=== PATIENT | male | born 1940 | race Caucasian/White ===

== ENCOUNTER 2019-09-16 04:09 | Inpatient (IN) ==
[2019-09-16] MEDS ORDERED: NS 1,000 ML IV ONE ×2 (05:02→08:11)
[2019-09-16 05:04] LABS: BASO# 0.02 X1000 (0.0-0.2); BASO% 0.1 % (0.0-0.8); HEMATOCRIT 39.7 % (42.0-52.0); HEMOGLOBIN 12.9 g/dL (14.0-18.0); IMM GRAN# 0.07 X1000 (0.0-0.04); IMM GRAN% 0.3 % (0.0-0.5); LYMPH# 1.63 X1000 (1.2-3.4); LYMPH% 7.9 % (20.5-51.1); MCH 33.2 PG (27-31); MCHC 32.5 g/dL (33-37); MCV 102.1 FL (81-99); MONO# 1.25 X1000 (0.11-0.59); MONO% 6.1 % (1.7-9.3); MPV 8.7 FL (7.4-10.4); NEUT# 17.61 X1000 (1.4-6.5); NEUT% 85.6 % (42.2-75.2); PLT 235 X1000 (130-400); RBC 3.89 XMIL (4.7-6.1); RDW 12.8 % (11.5-14.5); WBC 20.58 X1000 (4.8-10.8)
[2019-09-16 05:13] LABS: INR 1.14; PROTIME 14.7 Seconds (11.0-16.0)
[2019-09-16 05:14] LABS: PTT 30.2 Seconds (22.3-41.8)
[2019-09-16 05:25] LABS: ALB/GLOB RATIO 1.1; ALBUMIN 3.1 g/dL (3.5-5.0); CALCIUM 8.4 mg/dL (8.8-10.2); CREATININE 1.4 mg/dL (0.7-1.2); POTASSIUM 3.9 mmol/L (3.5-5.1); TOTAL BILIRUBIN 0.71 mg/dL (0.20-1.00); TOTAL PROTEIN 5.8 g/dL (6.3-8.3)
[2019-09-16 06:03] LABS: CK-MB 2.17 ng/mL (0.0-5.0)
[2019-09-16 06:20] LABS: URINE SOURCE CATH
[2019-09-16 06:30] LABS: BILIRUBIN URINE NEGATIVE (NEGATIVE); BLOOD URINE MODERATE (NEGATIVE); COLOR YELLOW; GLUCOSE URINE NEGATIVE (NEGATIVE); KETONE URINE NEGATIVE (NEGATIVE); LEUKOCYTES URINE LARGE (NEGATIVE); NITRITE URINE NEGATIVE (NEGATIVE); PROTEIN URINE 70 mg/dL (NEGATIVE); SP GRAVITY URINE 1.014; TURBIDITY URINE HAZY (CLEAR); UROBILINOGEN URINE NORMAL (NORMAL)
--- NOTE | 2019-09-16 06:33 | Diag Imaging Result Doc PS360 ---
CHEST-1 VIEW - 09/16/2019 INDICATION: NEWS COMPARISON: 04/07/2019 FINDINGS: Stable calcified granuloma in the left lung base. The lungs are clear. Heart size is normal. No pneumothorax or pleural effusion. IMPRESSION: Negative exam. Electronically signed by Mike Kaufman 09/16/2019 6:30 AM
[2019-09-16 06:37] LABS: UR EPITHELIAL CELLS <10 /HPF (<10); URINE BACTERIA 4+ /HPF; URINE RBC 20-40 /HPF (<10); URINE WBC TNTC /HPF (<10)
--- NOTE | 2019-09-16 06:44 | EKG Report ---
Test Performed on : 09/16/2019 05:09:38 AM Test Reason : WEAKNESS Blood Pressure : / mmHG Vent. Rate : 091 BPM Atrial Rate : 091 BPM P-R Int : 158 ms QRS Dur : 096 ms QT Int : 324 ms P-R-T Axes : 063 -12 050 degrees QTc Int : 398 ms Sinus rhythm. with premature atrial complexes. Otherwise normal ECG When compared with ECG of 16-SEP-2019 05:09, (Unconfirmed) premature ventricular complexes. are no longer present premature atrial complexes. are now present Unconfirmed Result
[2019-09-16] MEDS ORDERED: LEVAQUIN 500 MG/D5W 500 MG/100 ML IVPB IV ONE (06:45)
[2019-09-16 06:47] LABS: URINE CASTS NONE SEEN; URINE CRYSTALS NONE SEEN; URINE SMALL ROUND CELLS NONE SEEN; URINE YEAST NONE SEEN
--- NOTE | 2019-09-16 06:51 | PROVIDER DOCUMENTATION ---
HPI-Fever - General Chief Complaint: Weakness Stated Complaint: weakness Time Seen by Provider: 09/16/19 04:09 Source: patient Allergies/Adverse Reactions: Patient Allergies Allergy/AdvReac Type Severity Reaction Status Date / Time No Known Allergies Allergy Verified 09/16/19 07:06 Home Medications: Home Medication List Medication Instructions Recorded Confirmed Last Taken Type Prednisone 20 mg PO DAILY 10/28/12 09/16/19 10/28/12 18:00 History SIMVAstatin [Zocor] 20 mg PO QHS 10/28/12 09/16/19 10/28/12 18:00 History Tamsulosin [Flomax] 0.8 mg PO DAILY 10/28/12 09/16/19 10/28/12 18:00 History Mesalamine 2 tab PO DAILY 09/16/19 09/16/19 Unknown History - History of Present Illness-Fever Nature of Presenting Problem: 78 y/o WM c/o generalized weakness and difficulty urinating since last night. Pt notes that he fell trying to get to restroom last night bumping his lt elbow. Pt adds that he thinks his tetanus is utd. Fever Severity/Quality: reports: low grade Onset/Duration: reports: last night Timing: reports: still present Severity: reports: moderate Context: reports: none Fever Therapy SENIOR SOFTWARE QA ANALYST: Initiated Tylenol Cognitive Baseline: alert, oriented x3 Modifying Factors: improves with: movement Associated Symptoms: reports: genitourinary problems, trouble walking Similar Symptoms Previously?: No Recently seen or treated by another doctor?: No - Glascow Coma Score Best Eye Response ([place]): (4) open spontaneously Best Verbal Response ([place]): (5) oriented Best Motor Response ([place]): (6) obeys commands Review of Systems - Adult - REVIEW OF SYSTEMS - ADULT Constitutional: reports: see HPI, fever Eyes: reports: no symptoms reported, see HPI Ears, Nose, Mouth & Throat: reports: no symptoms reported, see HPI Cardiovascular: reports: no symptoms reported, see HPI Respiratory: reports: no symptoms reported, see HPI Gastrointestinal: reports: no symptoms reported, see HPI Genitourinary: reports: see HPI, hesitency Musculoskeletal: reports: no symptoms reported, see HPI Integumentary: reports: see HPI, other (skin abrasion to elbows) Neurological: reports: see HPI, loss of balance Psychiatric: reports: no symptoms reported, see HPI Endocrine: reports: no symptoms reported, see HPI Hematologic/Lymphatic: reports: no symptoms reported, see HPI Allergic/Immunologic: reports: no symptoms reported, see HPI All Other Systems: Reviewed and Negative Past History - Adult - PAST MEDICAL HISTORY-ADULT Review of Records: reports: Nursing Assessment Review, Medications Reviewed, Social history reviewed & non-contributory. Physical Exam-General - PHYSICAL EXAM-ADULT Initial Vital Signs Reviewed: Yes - CONSTITUTIONAL General Appearance: appears well, alert, no apparent distress - EYES Eyes: PERRL/EOMI - HEAD, EARS, NOSE, MOUTH & THROAT HENMT: normocephalic/atraumatic, moist mucous membranes, other (dry MM) - NECK Neck: non-tender, full range of motion, supple - RESPIRATORY Respiratory: chest non-tender, lungs clear, normal breath sounds, no pleuratic chest pain, no respiratory distress, no accessory muscle use - CARDIOVASCULAR Cardiovascular: normal peripheral pulses, regular rate, rhythm, no edema, no gallop, no JVD, no murmur - GASTROINTESTINAL (ABDOMEN) Abdominal Exam: normal bowel sounds, non tender, soft, no organomegaly, no pulsatile mass - LYMPHATIC Lymphatic: no adenopathy - MUSCULOSKELETAL Back Exam: normal inspection, no CVA tenderness, no vertebral tenderness Extremity: non-tender Peripheral Pulses: radial (R): 4+, radial (L): 4+, dorsalis-pedis (R): 4+, dorsalis-pedis (L): 4+ - SKIN Integumentary: normal color, normal turgor - NEUROLOGIC Neurologic: maritime guard II-XII nml as tested, grossly normal, no motor/sensory deficits. negative: sensory deficit - PSYCHIATRIC Psych/Mental Status: normal mood/affect, normal thought content, normal thought process, oriented x 3 Progress - PLAN OF CARE/RESULTS Progress/Plan/Lab Results: Vital Signs - 8 hr 09/16/19 04:30 09/16/19 05:00 09/16/19 06:00 Temperature 100.8 F H Pulse Rate 96 H 99 H 99 H Respiratory Rate 20 20 20 Blood Pressure 105/53 90/59 111/69 O2 Sat by Pulse Oximetry 95 94 L 96 Laboratory Results - last 24 hr 09/16/19 09/16/19 09/16/19 04:41 04:50 04:50 WBC RBC Hgb Hct MCV MCH MCHC RDW Std Deviation Plt Count MPV Immature Gran % (Auto) Neut % (Auto) Lymph % (Auto) [place] % (Auto) Eos % (Auto) Baso % (Auto) Immature Gran # (Auto) Neut # (Auto) Lymph # (Auto) [place] # (Auto) Eos # (Auto) Baso # (Auto) PT INR PTT (Actin FS) Sodium 138 Potassium 3.9 Chloride 99 Carbon Dioxide 27 Anion Gap 12 BUN 27 H Creatinine 1.4 H Estimated GFR/1.73 m2 49 BUN/Creatinine Ratio 19 Glucose 117 H POC Glucose 102 Calculated Osmolality 282 Calcium 8.4 L Total Bilirubin 0.71 AST 16 ALT 13 Alkaline Phosphatase 49 Creatine Kinase 221 H Creatine Kinase Index 1.0 CK-MB (CK-2) 2.17 Troponin T High Sens Total Protein 5.8 L Albumin 3.1 L Globulin 2.7 Albumin/Globulin Ratio 1.1 Plasma Lactate 1.2 Urine Source Urine Color Urine Turbidity Urine pH Ur Specific [place] Urine Protein Ur Glucose (Stick) Ur Ketones (Stick) Urine Blood Urine Nitrite Urine Bilirubin Urobilinogen Dipstick Urine Leukocytes Urine WBC (Auto) Urine RBC (Auto) U Epithel Cells (Auto) Urine Bacteria (Auto) Urine Crystals Small Round Cells Urine Casts Urine Yeast-like Cells 09/16/19 09/16/19 09/16/19 04:50 04:50 04:50 WBC 20.58 H RBC 3.89 L Hgb 12.9 L Hct 39.7 L MCV 102.1 H MCH 33.2 H MCHC 32.5 L RDW Std Deviation 12.8 Plt Count 235 MPV 8.7 Immature Gran % (Auto) 0.3 Neut % (Auto) 85.6 H Lymph % (Auto) 7.9 L [place] % (Auto) 6.1 Eos % (Auto) 0.0 Baso % (Auto) 0.1 Immature Gran # (Auto) 0.07 H Neut # (Auto) 17.61 H Lymph # (Auto) 1.63 [place] # (Auto) 1.25 H Eos # (Auto) 0.00 Baso # (Auto) 0.02 PT 14.7 INR 1.14 PTT (Actin FS) 30.2 Sodium Potassium Chloride Carbon Dioxide Anion Gap BUN Creatinine Estimated GFR/1.73 m2 BUN/Creatinine Ratio Glucose POC Glucose Calculated Osmolality Calcium Total Bilirubin AST ALT Alkaline Phosphatase Creatine Kinase Creatine Kinase Index CK-MB (CK-2) Troponin T High Sens 26 H Total Protein Albumin Globulin Albumin/Globulin Ratio Plasma Lactate Urine Source Urine Color Urine Turbidity Urine pH Ur Specific [place] Urine Protein Ur Glucose (Stick) Ur Ketones (Stick) Urine Blood Urine Nitrite Urine Bilirubin Urobilinogen Dipstick Urine Leukocytes Urine WBC (Auto) Urine RBC (Auto) U Epithel Cells (Auto) Urine Bacteria (Auto) Urine Crystals Small Round Cells Urine Casts Urine Yeast-like Cells 09/16/19 06:12 WBC RBC Hgb Hct MCV MCH MCHC RDW Std Deviation Plt Count MPV Immature Gran % (Auto) Neut % (Auto) Lymph % (Auto) [place] % (Auto) Eos % (Auto) Baso % (Auto) Immature Gran # (Auto) Neut # (Auto) Lymph # (Auto) [place] # (Auto) Eos # (Auto) Baso # (Auto) PT INR PTT (Actin FS) Sodium Potassium Chloride Carbon Dioxide Anion Gap BUN Creatinine Estimated GFR/1.73 m2 BUN/Creatinine Ratio Glucose POC Glucose Calculated Osmolality Calcium Total Bilirubin AST ALT Alkaline Phosphatase Creatine Kinase Creatine Kinase Index CK-MB (CK-2) Troponin T High Sens Total Protein Albumin Globulin Albumin/Globulin Ratio Plasma Lactate Urine Source CATH Urine Color YELLOW Urine Turbidity HAZY Urine pH 6.0 Ur Specific [place] 1.014 Urine Protein 70 A Ur Glucose (Stick) NEGATIVE Ur Ketones (Stick) NEGATIVE Urine Blood MODERATE A Urine Nitrite NEGATIVE Urine Bilirubin NEGATIVE Urobilinogen Dipstick NORMAL Urine Leukocytes LARGE A Urine WBC (Auto) TNTC A Urine RBC (Auto) 20-40 A U Epithel Cells (Auto) <10 Urine Bacteria (Auto) 4+ Urine Crystals NONE SEEN Small Round Cells NONE SEEN Urine Casts NONE SEEN Urine Yeast-like Cells NONE SEEN Orders Category Date Time Status Cardiac Monitoring NOW Care 09/16/19 04:40 Active NEWS Score 2-4:Order NEWS Lactate Series NOW Care 09/16/19 04:38 Completed Notify Provider of NEWS Score NOW Care 09/16/19 04:40 Active CHEST-1 VIEW [RAD] Stat Exams 09/16/19 04:40 Completed BLOOD CULTURE [BLDCUL] Stat Lab 09/16/19 04:50 Results CBC WITH DIFF [HEME] Stat Lab 09/16/19 04:50 Completed CK PROFILE [SP CHEM] Stat Lab 09/16/19 04:50 Completed COMPREHENSIVE METABOLIC PANEL [CHEM] Stat Lab 09/16/19 04:50 Completed LACTATE, PLASMA [CHEM] Lab 09/16/19 07:45 Uncollected LACTATE, PLASMA [CHEM] Lab 09/16/19 10:45 Uncollected LACTATE, PLASMA [CHEM] Q3H Lab 09/16/19 04:50 Completed PROTIME WITH INR [COAG] Stat Lab 09/16/19 04:50 Completed PTT [COAG] Stat Lab 09/16/19 04:50 Completed TROPONIN T HIGH SENSITIVITY Stat Lab 09/16/19 04:50 Completed URINALYSIS W/POSS RFLX CULT [URINALYSIS] Stat Lab 09/16/19 06:12 Completed URINE CULTURE [RM] Routine Lab 09/16/19 06:12 Received URINE MANUAL MICROSCOPIC [URINALYSIS] Stat Lab 09/16/19 06:12 Completed 0.9% Sodium Chloride Inj [Ns] 1,000 ml Med 09/16/19 05:02 Discontinued IV 999 mls/hr Acetaminophen [Tylenol] Med 09/16/19 06:54 Discontinued 650 mg PO NOW ONE Levofloxacin 500 mg/D5w [Levaquin 500 mg/D5w] Med 09/16/19 06:45 Discontinued 500 mg in 100 ml IV NOW O2 Per Protocol Stat Oth 09/16/19 04:40 Active EKG [EKG] Stat Ther 09/16/19 05:09 Draft Result Diagrams: 09/16/19 04:50 09/16/19 04:50 - CONSULTS/PCP/HOSPITALIST Notification #1 *Consult/PCP/Hospitalist*: Dr Quinn Time Discussed: 06:54 Reason/Comments: paged #2 Consult: Karlene jensen Hospitalist Time Discussed: 07:46 Consult Disposition: Will see in ED, Admit Departure - Departure Date of Disposition Decision: 09/16/19 Time of Disposition Decision: 06:54 DIAGNOSIS: UTI (urinary tract infection), Weakness Disposition: ADMITTED INPATIENT 09 Certified Medical Emergency: Emergent Condition: Fair Referrals and Follow-Ups: None,PCP [Primary Care Provider] - - Critical Care Note This patient required my direct & personal management of CC.: No Attestation - Physician/ YOUSIF Attestation Patient care was provided by Advanced Practice Provider:: No The physician spent face to face time with patient:: Yes Advanced Practice Provider documentation review:: Supervising physician onsite and consulted in the evaluation and care of this patient. The physician did have a face to face encounter with the patient.
[2019-09-16] MEDS ORDERED: TYLENOL PO ONE (06:54)
[2019-09-16] MEDS ORDERED: NS 1,000 ML ONE (08:11)
--- NOTE | 2019-09-16 09:01 | HISTORY AND PHYSICAL ---
PRIMARY CARE PHYSICIAN: Dr. Salazar. CHIEF COMPLAINT: A fall, generalized weakness, difficulty urinating that began last night. HISTORY OF PRESENTING ILLNESS: This is a 78-year-old male, who presents to [facility] with family, who stated that he had fallen trying to go to the restroom and bumped his left elbow. Did not hit his head or lose any consciousness. He has had increased weakness and difficulty urinating that began last night and has progressively worsened. Workup showed a white blood cell count of 20.58, creatinine of 1.4. Urinalysis showed negative nitrites, large leukocytes, 4+ bacteria. When he arrived to the emergency room, his blood pressure was 105/53; currently it is 70/59. We are giving him fluids per the sepsis protocol. He has had his blood cultures. Received her first dose of Levaquin 500 mg IV, and further orders will be admitted for further evaluation and treatment. PAST MEDICAL HISTORY: Hyperlipidemia, BPH. PAST SURGICAL HISTORY: A total knee replacement. FAMILY HISTORY: Reviewed and noncontributory. SOCIAL HISTORY: Currently lives with . He is a former smoker. Drinks alcohol socially and denies any illicit drug use. ALLERGIES: He has no known drug allergies. HOME MEDICATIONS: He takes mesalamine 1.2 two tablets p.o. daily, prednisone 20 mg p.o. daily, simvastatin 20 mg p.o. at bedtime and Flomax 0.8 mg p.o. daily. LABORATORY DATA: Showed a white blood cell count of 20.58, hemoglobin 12.9, hematocrit 39.7, platelets 235. PT and INR of 14.7 and 1.14. Sodium 138, potassium 3.9, chloride 99, CO2 27. BUN of 27, creatinine 1.4, glucose 117, plasma lactate was 1.2. Urinalysis showed moderate blood, negative nitrites, large leukocytes and 4+ bacteria. This was per in-and-out catheterization. IMAGING STUDIES: 1. Chest x-ray showed a negative exam. 2. EKG showed normal sinus rhythm with premature atrial complexes at 91. REVIEW OF SYSTEMS: He denied any fever, chills, blurred vision. He did have some dizziness generalized weakness, had a fall. Denied any chest pain, coughing, shortness of breath. Denied any abdominal pain, constipation, diarrhea. He did have difficulty with urination. PHYSICAL EXAMINATION: VITAL SIGNS: On arrival, he had a temperature of a 100.8 degrees, pulse 96, respirations 20, blood pressure 105/53, satting 95% on room air. Currently, his blood pressure is 70/59. HENT: Normocephalic, atraumatic. Normal ENT inspection. Oropharynx and nares are clear. EYES: Pupils are equal, round, reactive to light and accommodation. Extraocular movements are intact. NECK: Normal inspection. Normal range of motion. LUNGS: Clear to auscultation bilaterally with equal lung expansion and chest wall movement. HEART: With regular rate and rhythm. No murmurs, rubs, or gallops. ABDOMEN: Soft, nontender, nondistended. Bowel sounds are present x4 quadrants. MUSCULOSKELETAL: He had 4/5 strength x4 extremities. NEUROLOGICAL: The cranial nerves 2-12 appear grossly intact. ASSESSMENT: 1. Sepsis. 2. Urinary tract infection. 3. Hypotension. 4. Leukocytosis. 5. Acute kidney injury. 6. Fall. PLAN: He will be admitted to the medical unit if we are able to get his blood pressure up after this current liter bolus. If not, he will need to go to [facility], so we will await the completion of this liter bolus to make that decision. He will be placed on telemetry, healthy heart diet. We will apply SCDs for DVT prophylaxis. He will have normal saline at 125 mL an hour, Levaquin 500 mg IV q. 24 hours, and receive that first dose in the emergency room. We will do serial lactates. Recheck CBC and BMP in the a.m. Urine culture is also pending and blood culture x2 pending. Dictated by BECCA Florian for Jose Garces MD Addendum: Patient seen and examined by myself. Agree with BECCA note. It reflects my assessment and plan. Patient is being admitted to hospital for sepsis secondary to UTI. Will monitor patient closely. Will start Meropenem and will follow results of urine and blood cultures. cc: BECCA Florian MD Kathy J. Sparacino, MD [facility]IT[facility]
[2019-09-16] MEDS ORDERED: NS 1,000 ML IV SCH ×2 (09:36→10:00)
[2019-09-16] MEDS ORDERED: PREDNISONE PO SCH (09:36)
[2019-09-16] MEDS ORDERED: ZOFRAN IV PRN (09:36)
[2019-09-16] MEDS ORDERED: ROCEPHIN 1 GM in NS 50 ML IV SCH (10:00)
[2019-09-16] MEDS: NS 1,000 ML IV SCH ×3 (10:37→23:30)
[2019-09-16] MEDS: LIALDA PO SCH (10:37)
[2019-09-16] MEDS: FLOMAX PO SCH (10:37)
[2019-09-16] MEDS: ZOCOR PO SCH (21:30)
[2019-09-16] MEDS: MERREM 1 GM in NS 50 ML IV SCH (21:34)
[2019-09-17] MEDS: MERREM 1 GM in NS 50 ML IV SCH ×3 (03:50→20:01)
[2019-09-17] MEDS: NS 1,000 ML IV SCH ×3 (05:19→20:01)
[2019-09-17 08:16] LABS: BASO# 0.01 X1000 (0.0-0.2); HEMATOCRIT 37.3 % (42.0-52.0); HEMOGLOBIN 11.9 g/dL (14.0-18.0); IMM GRAN# 0.03 X1000 (0.0-0.04); IMM GRAN% 0.1 % (0.0-0.5); LYMPH# 1.15 X1000 (1.2-3.4); LYMPH% 5.6 % (20.5-51.1); MCH 32.6 PG (27-31); MCHC 31.9 g/dL (33-37); MCV 102.2 FL (81-99); MONO# 1.08 X1000 (0.11-0.59); MONO% 5.3 % (1.7-9.3); MPV 8.7 FL (7.4-10.4); NEUT# 18.09 X1000 (1.4-6.5); PLT 197 X1000 (130-400); RBC 3.65 XMIL (4.7-6.1); RDW 12.8 % (11.5-14.5); WBC 20.36 X1000 (4.8-10.8)
[2019-09-17 08:23] LABS: CREATININE 1.2 mg/dL (0.7-1.2); POTASSIUM 3.9 mmol/L (3.5-5.1)
[2019-09-17] MEDS: FLOMAX PO SCH (08:39)
[2019-09-17] MEDS: LIALDA PO SCH (08:39)
--- NOTE | 2019-09-17 08:49 | PROGRESS NOTE ---
DATE: 09/17/2019 SUBJECTIVE: The patient reports still general weakness, chills and fever last night. He had 102.0 degrees. No other complaints. OBJECTIVE: Vital Signs: Temperature 99.6 degrees, heart rate 90, respiratory rate 16, blood pressure 125/72, O2 saturation 97% on room air. General Examination: This is a chronically ill- appearing 78-year-old male, lying in bed, in no acute distress. Cardiovascular: S1, S2 heard. No murmurs, gallops, or rubs. Regular rate and rhythm. Respiratory: Clear bilaterally to auscultation. No work of breathing or using accessory muscles. Abdomen: Soft, nontender to palpation. Bowel sounds present. No organomegaly. Mild suprapubic tenderness is noted. Neurological: Patient alert, oriented x3. Moves 4 extremities. LABORATORY DATA: White cell count 20.36 with hemoglobin 11.9, hematocrit 37.3, platelets 197,000. BMP that reveals creatinine 1.2, sodium 135. ASSESSMENT: 1. Gram-negative bacteremia. 2. Urinary tract infection. 3. Hypertension. 4. Acute kidney injury. PLAN: Patient has been admitted to the hospital for general weakness. We found out this patient has a UTI and yesterday we were informed that this patient has gram-negative rods in blood. The patient has been started on meropenem for possible ESBL bacteria. His white cell count persists to be high and he, of course, is still spiking a fever. Blood pressure is acceptable with IV fluids. We will continue with the same management. Because of IV fluids his renal function came back to normal. So at this point we continue to monitor this patient closely. cc: Jose Garces MD
[2019-09-17 10:16] LABS: BANDS 8 % (0-1); LYMPHS 4 % (21-51); MONO 6 % (1-9); SEGS 82 % (42-75)
[2019-09-17] MEDS: TYLENOL PO PRN ×2 (10:17→16:28)
[2019-09-17] MEDS: ZOCOR PO SCH (20:01)
[2019-09-18] MEDS: TYLENOL PO PRN ×2 (00:34→15:44)
[2019-09-18] MEDS: MERREM 1 GM in NS 50 ML IV SCH (03:15)
[2019-09-18] MEDS: NS 1,000 ML IV SCH ×3 (03:15→11:00)
[2019-09-18] MEDS: LIALDA PO SCH (09:09)
[2019-09-18] MEDS: FLOMAX PO SCH (09:09)
[2019-09-18 11:53] LABS: BASO# 0.02 X1000 (0.0-0.2); BASO% 0.1 % (0.0-0.8); EOS# 0.03 X1000 (0.0-0.7); EOS% 0.2 % (0.0-10.0); HEMATOCRIT 37.8 % (42.0-52.0); HEMOGLOBIN 12.1 g/dL (14.0-18.0); IMM GRAN# 0.04 X1000 (0.0-0.04); IMM GRAN% 0.3 % (0.0-0.5); LYMPH# 0.76 X1000 (1.2-3.4); LYMPH% 5.3 % (20.5-51.1); MCH 32.3 PG (27-31); MCV 100.8 FL (81-99); MONO# 0.92 X1000 (0.11-0.59); MONO% 6.4 % (1.7-9.3); MPV 8.5 FL (7.4-10.4); NEUT# 12.57 X1000 (1.4-6.5); NEUT% 87.7 % (42.2-75.2); PLT 190 X1000 (130-400); RBC 3.75 XMIL (4.7-6.1); RDW 12.8 % (11.5-14.5); WBC 14.34 X1000 (4.8-10.8)
[2019-09-18 12:06] LABS: AGAP 9; BUN 13 mg/dL (8-22); CALCIUM 7.8 mg/dL (8.8-10.2); CHLORIDE 106 mmol/L (98-107); COSMO 273; ESTIMATED GFR > 60; GLUCOSE 116 mg/dL (70-104); POTASSIUM 3.6 mmol/L (3.5-5.1); SODIUM 136 mmol/L (136-145); TCO2 21 mmol/L (25-35)
[2019-09-18 12:29] LABS: BANDS 8 % (0-1); LYMPHS 10 % (21-51); MONO 4 % (1-9); SEGS 78 % (42-75)
--- NOTE | 2019-09-18 12:56 | PROGRESS NOTE ---
DATE: 09/18/2019 SUBJECTIVE: Patient reports still having some pain in the mouth that apparently has some whitish froth. No fever or chills anymore. OBJECTIVE: Vital Signs: Temperature 98.3 degrees, heart rate 79, respiratory rate 12, blood pressure 132/70, O2 saturation 98% on room air. General Examination: This is a 78-year-old, male, lying in bed, in no acute distress. Cardiovascular Examination: S1 and S2 heard. No murmurs, gallops, or rubs. Regular rate and rhythm. Respiratory Examination: Clear bilaterally to auscultation. No work of breathing or using accessory muscles. Abdomen: Soft, nontender to palpation. Bowel sounds present. No organomegaly. Extremities: No clubbing, cyanosis, or edema. Peripheral pulses present in both legs. Neurological Examination: The patient is alert and oriented x3. Moves 4 extremities. Laboratory Data: White cell count 14.34, hemoglobin 12.1, hematocrit 37.8, platelets 190,000. BMP remarkable for creatinine 1.0. ASSESSMENT AND PLAN: 1. Escherichia coli bacteremia. That is the result of the final blood cultures so at this point, we are going to switch antibiotics from meropenem to ceftriaxone 2 g intravenous every 24 hours. We have ordered another blood culture and if that is negative, then we will place a peripherally inserted central catheter line and set up antibiotic treatment for 2 weeks. Day #1 of treatment will be #1 of the new blood culture being negative. 2. Acute kidney injury is resolved. Creatinine is completely normal. 3. Blood pressure is under control. 4. We will continue with the same management. cc: Jose Garces MD
[2019-09-18] MEDS: ROCEPHIN 1 GM in NS 50 ML IV SCH (13:45)
[2019-09-18] MEDS: DIFLUCAN 150 MG/NS 150 MG/75 ML IVPB IV SCH (14:58)
[2019-09-18] MEDS: ZOCOR PO SCH (20:34)
[2019-09-19] MEDS: NS 1,000 ML IV SCH ×2 (00:22→14:59)
[2019-09-19 07:52] LABS: BASO# 0.02 X1000 (0.0-0.2); BASO% 0.2 % (0.0-0.8); EOS# 0.06 X1000 (0.0-0.7); EOS% 0.5 % (0.0-10.0); HEMATOCRIT 37.1 % (42.0-52.0); HEMOGLOBIN 11.9 g/dL (14.0-18.0); IMM GRAN# 0.04 X1000 (0.0-0.04); IMM GRAN% 0.3 % (0.0-0.5); LYMPH# 1.29 X1000 (1.2-3.4); LYMPH% 11.2 % (20.5-51.1); MCHC 32.1 g/dL (33-37); MCV 99.7 FL (81-99); MONO# 1.02 X1000 (0.11-0.59); MONO% 8.9 % (1.7-9.3); MPV 8.5 FL (7.4-10.4); NEUT# 9.05 X1000 (1.4-6.5); NEUT% 78.9 % (42.2-75.2); PLT 203 X1000 (130-400); RBC 3.72 XMIL (4.7-6.1); RDW 12.8 % (11.5-14.5); WBC 11.48 X1000 (4.8-10.8)
[2019-09-19 08:16] LABS: AGAP 9; BUN 11 mg/dL (8-22); CALCIUM 7.7 mg/dL (8.8-10.2); CHLORIDE 106 mmol/L (98-107); COSMO 276; ESTIMATED GFR > 60; GLUCOSE 113 mg/dL (70-104); POTASSIUM 3.8 mmol/L (3.5-5.1); SODIUM 138 mmol/L (136-145); TCO2 23 mmol/L (25-35)
[2019-09-19] MEDS: FLOMAX PO SCH (09:24)
[2019-09-19] MEDS: LIALDA PO SCH (09:24)
--- NOTE | 2019-09-19 10:59 | PROGRESS NOTE ---
DATE: 09/19/2019 SUBJECTIVE: The patient reports feeling fine. No fever or chills. OBJECTIVE: Vital Signs: Temperature 100.2 degrees, heart rate 77, respiratory rate 20, blood pressure 128/71, O2 saturation 97% on room air. General: This is a 78-year-old, male, lying in bed in no acute distress. Cardiovascular: S1, S2 heard. No murmurs, gallops, or rubs. Regular rate and rhythm. Respiratory: Clear bilaterally to auscultation. No work of breathing or using accessory muscles. Abdomen: Soft, nontender to palpation. Bowel sounds present. No organomegaly. Extremities: No clubbing, cyanosis, or edema. Peripheral pulses present in both legs. Neurological: The patient is alert and oriented x3. Moves all 4 extremities. LABORATORY DATA: Reviewed. ASSESSMENT AND PLAN: 1. Escherichia coli bacteremia. We placed this patient on ceftriaxone 2 grams intravenously every 24 hours. The first 24 hours from that culture is negative, so will wait 1 more day, and then will most likely release him after we place a peripherally-inserted central catheter line and set up home antibiotics for him. 2. Acute kidney injury, resolved. 3. Hypertension. Blood pressure is under control. Will continue with the same management. 4. Disposition. Will continue to monitor this patient closely. cc: Jose Garces MD
[2019-09-19] MEDS: ROCEPHIN 1 GM in NS 50 ML IV SCH (13:59)
[2019-09-19] MEDS: DIFLUCAN 150 MG/NS 150 MG/75 ML IVPB IV SCH (14:59)
[2019-09-19] MEDS: ZOCOR PO SCH (20:54)
[2019-09-20] MEDS: NS 1,000 ML IV SCH (02:27)
[2019-09-20 06:59] LABS: BASO# 0.02 X1000 (0.0-0.2); BASO% 0.2 % (0.0-0.8); EOS# 0.08 X1000 (0.0-0.7); EOS% 0.8 % (0.0-10.0); HEMATOCRIT 38.4 % (42.0-52.0); HEMOGLOBIN 12.3 g/dL (14.0-18.0); IMM GRAN# 0.05 X1000 (0.0-0.04); IMM GRAN% 0.5 % (0.0-0.5); LYMPH% 14.5 % (20.5-51.1); MCH 31.8 PG (27-31); MCV 99.2 FL (81-99); MONO# 0.71 X1000 (0.11-0.59); MONO% 7.3 % (1.7-9.3); MPV 8.5 FL (7.4-10.4); NEUT# 7.42 X1000 (1.4-6.5); NEUT% 76.7 % (42.2-75.2); PLT 231 X1000 (130-400); RBC 3.87 XMIL (4.7-6.1); RDW 12.6 % (11.5-14.5); WBC 9.68 X1000 (4.8-10.8)
[2019-09-20 07:30] LABS: AGAP 8; BUN 10 mg/dL (8-22); CALCIUM 8.1 mg/dL (8.8-10.2); CHLORIDE 104 mmol/L (98-107); COSMO 277; CREATININE 0.9 mg/dL (0.7-1.2); ESTIMATED GFR > 60; GLUCOSE 107 mg/dL (70-104); POTASSIUM 4.3 mmol/L (3.5-5.1); SODIUM 139 mmol/L (136-145); TCO2 27 mmol/L (25-35)
[2019-09-20] MEDS: FLOMAX PO SCH (10:00)
[2019-09-20] MEDS: LIALDA PO SCH (10:00)
--- NOTE | 2019-09-20 10:54 | DISCHARGE SUMMARY ---
ADMISSION DATE: 09/16/2019 DISCHARGE DATE: 09/20/2019 DISCHARGE DIAGNOSES: 1. Escherichia Coli bacteremia. 2. Urinary tract infection secondary to condition #1. 3. Hypotension resolved. 4. Acute kidney injury, resolved. PROCEDURES: Chest x-ray done on admission showed negative exam. HOSPITAL COURSE: In brief, this patient was admitted to the hospital for symptoms compatible with urinary tract infection. White cell count was very elevated at 20,000 with elevated creatinine 1.4 and lower pressure that respond to fluids. The patient was found to have E. Coli, but sensitive to cephalexin and cefazolin so patient was switched to ceftriaxone. The patient is doing fine. We will repeat another blood culture, and that was negative during the first 48 hours. So at this point, we are planning to send this patient home with home antibiotics. We are going to place a PICC line. We will keep this patient on ceftriaxone 2 g IV q.24 hours for 2 weeks. The patient is going to be discharged in stable condition. Acute kidney injury resolved completely, and blood pressure is completely back to normal. DISCHARGE PHYSICAL EXAMINATION: Vital Signs: Temperature 98.4 degrees, heart rate 62, respiratory 17, blood pressure 121/68, and O2 saturation 97% on room air. General: The patient is a chronically ill-looking 78-year-old male lying in bed in no acute distress. Cardiovascular: S1, S2 heard. No murmurs, gallops, or rubs. Regular rate and rhythm. Respiratory: Clear bilaterally to auscultation. No work of breathing or using accessory muscles. Abdomen: Soft. Nontender to palpation. Bowel sounds present. No organomegaly. Extremities: No clubbing, cyanosis, or edema. Peripheral pulses present in both legs. Neurological: The patient is alert and oriented x3. Moves 4 extremities. DISCHARGE DISPOSITION: Home to self-care. HOME MEDICATIONS: We are going to start ceftriaxone 2 g IV q.24 hours for 2 weeks. TIME SPENT: Time discharging this patient 33 minutes. cc: Jose Garces MD
[2019-09-20] MEDS: ROCEPHIN 1 GM in NS 50 ML IV SCH (12:37)
[2019-09-20] MEDS: DIFLUCAN 150 MG/NS 150 MG/75 ML IVPB IV SCH (15:57)
[2019-09-20] MEDS: ZOCOR PO SCH (20:51)
[2019-09-21 03:53] VITALS: BP 116/66
[2019-09-21 08:15] LABS: BASO# 0.02 X1000 (0.0-0.2); BASO% 0.2 % (0.0-0.8); EOS# 0.15 X1000 (0.0-0.7); EOS% 1.6 % (0.0-10.0); HEMOGLOBIN 11.9 g/dL (14.0-18.0); IMM GRAN# 0.04 X1000 (0.0-0.04); IMM GRAN% 0.4 % (0.0-0.5); LYMPH# 1.43 X1000 (1.2-3.4); LYMPH% 15.5 % (20.5-51.1); MCH 31.9 PG (27-31); MCHC 32.2 g/dL (33-37); MCV 99.2 FL (81-99); MONO# 0.59 X1000 (0.11-0.59); MONO% 6.4 % (1.7-9.3); MPV 8.8 FL (7.4-10.4); NEUT# 7.01 X1000 (1.4-6.5); NEUT% 75.9 % (42.2-75.2); PLT 265 X1000 (130-400); RBC 3.73 XMIL (4.7-6.1); RDW 12.7 % (11.5-14.5); WBC 9.24 X1000 (4.8-10.8)
[2019-09-21 08:26] LABS: AGAP 8; BUN 9 mg/dL (8-22); CALCIUM 8.3 mg/dL (8.8-10.2); CHLORIDE 104 mmol/L (98-107); COSMO 279; CREATININE 0.9 mg/dL (0.7-1.2); ESTIMATED GFR > 60; GLUCOSE 107 mg/dL (70-104); POTASSIUM 3.6 mmol/L (3.5-5.1); SODIUM 140 mmol/L (136-145); TCO2 28 mmol/L (25-35)
[2019-09-21] MEDS: LIALDA PO SCH (10:28)
[2019-09-21] MEDS: FLOMAX PO SCH (10:29)
[2019-09-21] MEDS: ROCEPHIN 1 GM in NS 50 ML IV SCH (11:27)
== END 2019-09-21 13:19 | disposition home health service (06) | DRG 683 ==
LOC: ED 04:09 → 3N 08:01
PROVIDERS: ATTEND Internal Medicine